=== PATIENT | male | born 2000 | race Caucasian/White ===

== ENCOUNTER 2023-04-17 14:06 | Inpatient (IN) | payer BC ==
[~2023-04-17] VITALS: Ht 175.3 cm; Wt 91.6 kg
[2023-04-17 14:28] VITALS: BP 132/69; PULSE 81; RESP 22; TEMP 98; O2SAT 100
[2023-04-17 15:04] LABS: BASOPHILS # (AUTO) 0.1 K/uL (0.00-0.22); BASOPHILS % (AUTO) 0.3 % (0.0-2.0); EOSINOPHILS % (AUTO) 0.3 % (0.0-4.0); HEMATOCRIT 46.3 % (36-52); HEMOGLOBIN 16.1 g/dL (12.0-18.0); LYMPHOCYTES # (AUTO) 2.1 K/uL (2.0-11.5); LYMPHOCYTES % (AUTO) 14.1 % (20.5-51.1); MEAN CORPUSCULAR HEMOGLOBIN 31 pg (27-31); MEAN CORPUSCULAR HGB CONC 35 g/dL (33-37); MEAN CORPUSCULAR VOLUME 89.4 fL (80-94); MONOCYTES # (AUTO) 0.8 K/uL (0.8-1.0); MONOCYTES % (AUTO) 5.2 % (1.7-9.3); NEUTROPHILS # (AUTO) 12.2 K/uL (1.8-7.7); NEUTROPHILS % (AUTO) 80.1 % (42.2-75.2); PLATELET COUNT (AUTO) 244 K/uL (140-450); RED BLOOD CELL COUNT(AUTO) 5.18 MIL/uL (4.20-6.10); RED CELL DISTRIBUTION WIDTH 12.6 % (11.6-13.7); WHITE BLOOD COUNT (AUTO) 15.2 K/uL (4.8-10.8)
[2023-04-17 15:22] LABS: ALBUMIN 4.1 g/dL (3.4-5.0); ANION GAP 12.2 (8-16); CARBON DIOXIDE 30.1 mmol/L (21-32); CREATININE 0.8 mg/dL (0.6-1.3); POTASSIUM 4.3 mmol/L (3.5-5.1); TOTAL BILIRUBIN 1.4 mg/dL (0.0-1.0)
[2023-04-17] MEDS ORDERED: KETOROLAC 15 MG/ML VIAL IVP ONE (15:30)
[2023-04-17] MEDS ORDERED: NACL 0.9% 1,000 ML IV ONE (15:30)
[2023-04-17 15:39] LABS: APPEARANCE,URINE CLEAR (CLEAR); BILIRUBIN,URINE NEGATIVE (NEGATIVE); BLOOD, URINE NEGATIVE (NEGATIVE); COLOR,URINE YELLOW (YELLOW); LEUKOCYTE ESTERASE ,URINE NEGATIVE (NEGATIVE); NITRITE, URINE NEGATIVE (NEGATIVE); UGLUCOSE 3+ (NEGATIVE)
[2023-04-17 16:08] LABS: CALCIUM OXALATE CRYSTALS,UR None Seen /HPF (None Seen); RBC,URINE NONE SEEN /HPF (0-5); TRICHOMONAS,URINE None Seen /HPF (None Seen); YEAST,URINE None Seen /HPF (None Seen)
--- NOTE | 2023-04-17 16:37 | NUR ---
Ultrasound at bedside.
--- NOTE | 2023-04-17 16:49 | NUR ---
Pt bibs for lower abd pain that started last night. Pain is 7/10, constant, worse with movement or palpation, burn. Pt is a/o x 4, vss, no ss of acute distress, breathing equal and unlabored, speech clear. No other complaints. Pt denies truama.
[2023-04-17] MEDS ORDERED: ONDANSETRON 4 MG/2 ML VIAL IVP ONE (16:50)
[2023-04-17] MEDS ORDERED: metroNIDAZOLE 500 MG/NS PREMIX 100 ML IV ONE (16:50)
[2023-04-17] MEDS ORDERED: cefTRIAXone 2,000 MG in DEXTROSE 5% 100 ML IV ONE (16:50)
[2023-04-17] MEDS ORDERED: MORPHINE SULFATE 4 MG/ML SYR IVP ONE (16:50)
[2023-04-17] MEDS ORDERED: cefTRIAXone 2,000 MG VIAL ONE (17:09)
[2023-04-17] MEDS: NACL 0.9% 1,000 ML IV SCH ×2 (17:15→18:22)
[2023-04-17] MEDS ORDERED: NACL 0.9% 1,000 ML IV SCH ×2 (18:35→18:50)
[2023-04-17] MEDS ORDERED: fentaNYL citrate 0.05 MG/ML VIAL ONE (18:50)
[2023-04-17] MEDS ORDERED: BLOOD GLUCOSE MONITORING 1 DEV DEV FS SCH (18:50)
[2023-04-17] MEDS ORDERED: ONDANSETRON 4 MG/2 ML VIAL IVP PRN ×2 (18:50→20:20)
[2023-04-17] MEDS ORDERED: MEPERIDINE 25 MG/ML SYR IVP PRN (18:50)
[2023-04-17] MEDS ORDERED: HYDROmorphone 1 MG/ML AMP IVP PRN ×2 (18:50→20:20)
[2023-04-17] MEDS ORDERED: SUCCINYLCHOLINE CHLORIDE 200 MG/10 ML VIAL IVP ONE (18:53)
[2023-04-17] MEDS ORDERED: PROPOFOL 200 MG/20 ML VIAL IV ONE (18:55)
--- NOTE | 2023-04-17 19:05 | NUR ---
Pt picked up by Sx team RN. Pt in stable condition, a/o x 4, vss, no ss of acute distress, breathing equal and unlabored, speech clear. Report given at bedside.
[2023-04-17] MEDS ORDERED: LIDOCAINE 1% 500 MG/50 ML VIAL ONE (19:10)
[2023-04-17] MEDS ORDERED: SEVOFLURANE 250 ML BTL INH ONE (19:10)
[2023-04-17] MEDS ORDERED: PIPERACILLIN/TAZOBACTAM 3.375 GM VIAL IV ONE ×2 (19:10→23:40)
[2023-04-17] MEDS ORDERED: BUPIVACAINE-MPF/EPI 0.25% 30 ML VIAL INJ ONE (19:10)
--- NOTE | 2023-04-17 19:12 | NUR ---
Report given to SX team DAVID Olmos.
[2023-04-17] MEDS ORDERED: ROCURONIUM 50 MG/5 ML VIAL IV ONE (19:30)
[2023-04-17] MEDS ORDERED: MEPERIDINE 50 MG/ML SYR ONE (19:39)
[2023-04-17] MEDS ORDERED: SUGAMMADEX SODIUM 200 MG/2 ML VIAL IV ONE (20:09)
[2023-04-17] MEDS ORDERED: ONDANSETRON 4 MG/2 ML VIAL ONE (20:10)
[2023-04-17] MEDS: DEXT 5% / NACL 0.9% 500 ML IV SCH (20:25)
[2023-04-17 21:20] VITALS: BP 130/78; PULSE 81; RESP 18; TEMP 97.7; O2SAT 99
[2023-04-17] MEDS: HYDROcodone/APAP 5/325 MG 1 TAB TAB PO PRN (22:02)
[2023-04-17] MEDS: PIPERACILLIN/TAZOBACTAM 3.375 GM in DEXTROSE 5% 50 ML IV SCH (23:49)
[2023-04-18] MEDS: DEXT 5% / NACL 0.9% 500 ML IV SCH ×2 (02:04→06:12)
[2023-04-18 04:00] VITALS: BP 127/82; PULSE 78; RESP 18; TEMP 98; O2SAT 100
[2023-04-18] MEDS ORDERED: PIPERACILLIN/TAZOBACTAM 3.375 GM VIAL IV ONE (04:26)
[2023-04-18] MEDS: PIPERACILLIN/TAZOBACTAM 3.375 GM in DEXTROSE 5% 50 ML IV SCH ×2 (05:25→06:12)
[2023-04-18 06:33] LABS: BASOPHILS % (AUTO) 0.2 % (0.0-2.0); EOSINOPHILS # (AUTO) 0.1 K/uL (0-0.4); EOSINOPHILS % (AUTO) 0.6 % (0.0-4.0); HEMATOCRIT 39.8 % (36-52); HEMOGLOBIN 13.8 g/dL (12.0-18.0); LYMPHOCYTES # (AUTO) 2.5 K/uL (2.0-11.5); LYMPHOCYTES % (AUTO) 26.4 % (20.5-51.1); MEAN CORPUSCULAR HEMOGLOBIN 31 pg (27-31); MEAN CORPUSCULAR HGB CONC 35 g/dL (33-37); MEAN CORPUSCULAR VOLUME 90.7 fL (80-94); MONOCYTES # (AUTO) 0.7 K/uL (0.8-1.0); MONOCYTES % (AUTO) 7.7 % (1.7-9.3); NEUTROPHILS # (AUTO) 6.1 K/uL (1.8-7.7); NEUTROPHILS % (AUTO) 65.1 % (42.2-75.2); PLATELET COUNT (AUTO) 182 K/uL (140-450); RED BLOOD CELL COUNT(AUTO) 4.39 MIL/uL (4.20-6.10); RED CELL DISTRIBUTION WIDTH 12.7 % (11.6-13.7); WHITE BLOOD COUNT (AUTO) 9.3 K/uL (4.8-10.8)
--- NOTE | 2023-04-18 06:34 | NUR ---
Received patient from ER, is alert and oriented x3, s/p appendectomy, has 3 incisiond in the abdomen, opened to air. Slept well through the night, after given 1 norco. NSS runs at 100ml/hour. Tolerated well. Possible d/c home today.
[2023-04-18 06:58] LABS: ANION GAP 9.9 (8-16); CARBON DIOXIDE 30.6 mmol/L (21-32); CREATININE 0.7 mg/dL (0.6-1.3); POTASSIUM 4.5 mmol/L (3.5-5.1)
[2023-04-18 08:00] VITALS: BP 132/84; PULSE 85; RESP 16; TEMP 96.8; O2SAT 97
[2023-04-18] MEDS: HYDROcodone/APAP 5/325 MG 1 TAB TAB PO PRN (08:34)
--- NOTE | 2023-04-18 08:51 | NUR ---
PATIENT HAS BEEN SCREENED AND CATEGORIZED MODERATE NUTRITION RISK. PATIENT WILL BE SEEN WITHIN 3-5 DAYS OF ADMISSION. 04/20/23-04/22/[address]
[2023-04-18] MEDS ORDERED: metroNIDAZOLE 500 MG/NS PREMIX 100 ML IV SCH (09:00)
[2023-04-18] MEDS ORDERED: DOCU-299 PO (10:24)
[2023-04-18] MEDS ORDERED: IBUP-2213 PO (10:24)
[2023-04-18 11:35] VITALS: BP 132/84; PULSE 85; RESP 16; TEMP 96.8
[2023-04-18 12:08] VITALS: BP 132/84; PULSE 85; RESP 16; TEMP 96.8
[2023-04-18 12:14] VITALS: BP 132/84; PULSE 85; RESP 16; TEMP 96.8
--- NOTE | 2023-04-18 13:10 | NUR ---
DISCUSSED DISCHARGE INSTRUCTIONS, INFORMED WHERE TO [facility]RE[facility] [place] OR [facility] MEDICATION, GAVE OFF WORK NOTE PER MD. DISCONTINUED IV, ALL QUESTIONS ASKED AND ANSWERED, PATIENT LEFT WITH FAMILY IN STABLE CONDITION.
== END 2023-04-18 13:00 | disposition home or self-care (01) | DRG 710 ==
LOC: MED 14:06 → MTU 18:46
PROVIDERS: ADMIT Family Medicine; ATTEND Family Medicine
PROC: 0DTJ4ZZ Resection of Appendix, Percutaneous Endoscopic Approach (ICD-10-PCS; principal; 2023-04-17 18:45)
DX: A41.9 Sepsis, unspecified organism (principal); R16.0 Hepatomegaly, not elsewhere classified; K76.0 Fatty (change of) liver, not elsewhere classified; K35.80 Unspecified acute appendicitis; E86.0 Dehydration; R74.01 Elevation of levels of liver transaminase levels; F12.90 Cannabis use, unspecified, uncomplicated; K57.30 Diverticulosis of large intestine without perforation or abscess without bleeding; Z79.1 Long term (current) use of non-steroidal anti-inflammatories (NSAID); Z79.899 Other long term (current) drug therapy
CPT/HCPCS: 36415; 76705; 80048; 80053; 81001; 82374; 83690; 85025; 86886; 86900; 86901; 87081; 96374; 96375; 99285; J0330; J0696; J1885; J2001; J2175; J2270; J2405; J2543; J2704; J3010; J3490; J7030; J7060; Q0092; Q9967

== ENCOUNTER 2024-08-06 17:00 | Emergency (ER) | payer BC, MEDICAID ==
[~2024-08-06] VITALS: Ht 175.3 cm; Wt 93.2 kg
[~2024-08-06 17:00] MED LIST: DOCU-299 PO; IBUP-2213 PO
[2024-08-06 17:16] VITALS: BP 118/83; PULSE 81; RESP 16; TEMP 97.3; O2SAT 98
[2024-08-06] MEDS ORDERED: IBUP-2213 PO (19:29)
[2024-08-06] MEDS ORDERED: PROM118S5 PO (19:29)
== END 2024-08-06 19:40 | disposition home or self-care (01) ==
LOC: MED 17:00
DX: J06.9 Acute upper respiratory infection, unspecified (principal); B97.89 Other viral agents as the cause of diseases classified elsewhere; E11.9 Type 2 diabetes mellitus without complications; Z79.899 Other long term (current) drug therapy
CPT/HCPCS: 71045; 99283